=== PATIENT | male | born 1980 | race American Indian/Alaskan Native ===

== ENCOUNTER 2018-04-30 00:51 | Emergency (ER) | payer SELFPAY ==
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
--- NOTE | 2018-04-30 02:07 | Cat Scan Report ---
FINAL REPORT EXAM: CT HEAD/BRAIN WO CON HISTORY: headache, trauma TECHNIQUE: Routine axial imaging was obtained of the brain without IV contrast. There are no previous studies available for comparison FINDINGS: There is encephalomalacia in the right frontal lobe and to lesser extent in the left frontal lobe. There is no evidence of acute stroke or hemorrhage. There are no extra-axial fluid collections. The ventricular system is appropriate in size and is symmetric. The mastoid air cells reveal extensive fluid in the left air cells compatible with mastoiditis. The right air cells are well pneumatized. There is soft tissue swelling overlying the left preseptal area and overlying the left zygomatic arch. There is a depressed fracture of the left zygomatic arch which is of uncertain age. There is a chronic fracture of the lateral wall of the left orbit. The visualized sinuses are clear. There surgical hardware along the right supraorbital area. IMPRESSION: Encephalomalacia in both frontal lobes as described. No evidence of acute stroke or hemorrhage. Soft tissue swelling overlying the left preseptal area and overlying the left zygomatic arch. Depressed fracture of the left zygomatic arch. Chronic fracture deformity of the lateral wall of the left orbit. Left mastoiditis
--- NOTE | 2018-04-30 02:15 | Cat Scan Report ---
FINAL REPORT EXAM: CT FACIAL BONES WO CON HISTORY: Facial trauma TECHNIQUE: Routine axial imaging was obtained of the facial bones without IV contrast with sagittal and coronal reconstructions. There are no previous studies available for comparison. FINDINGS: There is extensive left-sided preseptal soft tissue swelling and swelling overlying the left zygomatic arch. There is a comminuted mildly depressed fracture of the left zygomatic arch noted. Whether this is a recent fracture or remote fracture is uncertain. There is a chronic depressed fracture of the right zygomatic arch. There are multiple plates overlying the anterior bertrand of both maxillary sinuses as well as along the lateral bertrand of both orbits. There are chronic fracture deformities of both lateral bertrand of both orbits. There is hardware along the floors of both orbits as well. There is mucosal thickening laterally in the right maxillary sinus. The nasal bone appears intact. The mandible reveals multiple plates on both sides of the body of the mandible with a chronic fracture deformity the submental portion of the mandible. The TMJs do not show any acute changes. The ethmoidal air cells and frontal air cells are clear. There is mild mucosal thickening in the left sphenoid sinus. Once again there is fluid within the left mastoid air cells compatible with mastoiditis. IMPRESSION: Comminuted mildly depressed fracture of the left zygomatic arch. As to whether this represents a recent or remote injury is uncertain. Chronic fracture deformities of the right zygomatic arch, both orbital floors as well as lateral bertrand of both orbits noted. Multiple plates and screws involving both orbits as well as the mandible. Chronic submental fracture of the mandible. Extensive left-sided preseptal soft tissue swelling and swelling overlying the left zygomatic arch. Mucosal thickening in the right maxillary sinus and left sphenoid air cells. Left mastoiditis.
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
[2018-04-30 02:47] LABS: Basophils % (Auto) 0.1 % (0.0-1.8); Eosinophils % (Auto) 0.2 % (0.0-4.3); Hematocrit 38.1 % (35.5-45.6); Hemoglobin 12.1 gm/dl (11.8-15.2); Lymphocytes # (Auto) 1.7 K/mm3 (1.2-5.4); Lymphocytes % (Auto) 11.9 % (13.4-35.0); Mean Corpuscular HGB Conc 32 % (32-34); Mean Corpuscular Volume 72 fl (84-94); Monocytes # (Auto) 1.4 K/mm3 (0.0-0.8); Monocytes % (Auto) 9.6 % (0.0-7.3); Platelet Count 251 K/mm3 (140-440); Red Blood Count 5.32 M/mm3 (3.65-5.03); Red Cell Distribution Width 15.6 % (13.2-15.2)
[2018-04-30 02:55] LABS: BUN/Creatinine Ratio 12; Blood Urea Nitrogen 14 mg/dL (9-20); Calcium 9.1 mg/dL (8.4-10.2); Hemolysis Index 9
[2018-04-30 03:12] LABS: Mean Corpuscular Hemoglobin 23 pg (28-32)
[2018-04-30 05:13] VITALS: BP 112/72
[2018-04-30] MEDS ORDERED: BACTRIM DS PO ONE (06:04)
[2018-04-30] MEDS ORDERED: NORCO 5/325 PO ONE (06:30)
== END 2018-04-30 07:00 | disposition home or self-care (01) ==
LOC: ED 00:51
DX: S02.40FA Zygomatic fracture, left side, initial encounter for closed fracture (principal); S00.212A Abrasion of left eyelid and periocular area, initial encounter; H05.222 Edema of left orbit; F17.200 Nicotine dependence, unspecified, uncomplicated; F12.10 Cannabis abuse, uncomplicated; Z91.018 Allergy to other foods; Y00.XXXA Assault by blunt object, initial encounter; Y93.89 Activity, other specified; Y92.89 Other specified places as the place of occurrence of the external cause; Y99.8 Other external cause status
CPT/HCPCS: 36415; 70450; 70486; 71101; 80048; 82550; 84484; 85025; 99285; G0480; 80320